=== PATIENT | female | born 1975 | race African-American/Black ===

== ENCOUNTER 2019-03-19 03:48 | Emergency (ER) | payer OTHER ==
[~2019-03-19] VITALS: Ht 165.1 cm; Wt 113.0 kg
[2019-03-19] MEDS ORDERED: MORPHINE SULFATE 10 MG/ML CPJ IM ONE (04:45)
[2019-03-19] MEDS ORDERED: ONDANSETRON 4MG ODT PO ONE (04:45)
[2019-03-19 05:30] VITALS: BP 155/86
== END 2019-03-19 06:11 | disposition home or self-care (01) ==
LOC: ER 03:48
DX: M54.5 Low back pain (principal); M54.30 Sciatica, unspecified side; I10 Essential (primary) hypertension; F17.210 Nicotine dependence, cigarettes, uncomplicated
CPT/HCPCS: 96372; 99283; J2270; Q0162; Z7610

== ENCOUNTER 2022-08-17 20:33 | Emergency (ER) | payer MEDICAID, OTHER ==
[~2022-08-17] VITALS: Ht 165.1 cm; Wt 129.2 kg
[2022-08-17] MEDS ORDERED: ACETAMINOPHEN WITH CODEINE 300/30MG TABLET PO ONE (23:45)
[2022-08-18 00:18] VITALS: BP 174/105
[2022-08-18 00:38] LABS: CHLORIDE 107 mEq/L (98-107)
[2022-08-18 00:40] LABS: EOSINOPHILS % 1.4 % (0.0-5.0); HEMATOCRIT. 43.2 % (36.0-48.0); HEMOGLOBIN. 14.6 g/dL (12.0-16.0); LYMPHOCYTES % 34.4 % (20.0-50.0); MEAN CORPUSCULAR HEMOGLOBIN 29.7 pg (28.0-32.0); MEAN PLATELET VOLUME 9.9 fl (7.4-10.4); NEUTROPHILS % 55.2 % (40.0-76.0); PLATELET 203 x1000/uL (130-400); RED BLOOD CELL COUNT 4.91 mill/uL (4.2-5.4); RED CELL DISTRIBUTION WIDTH 13.4 % (11.6-14.6)
[2022-08-18 01:09] LABS: CLARITY URINE CLEAR (CLEAR); COLOR URINE YELLOW (YELLOW); KETONES URINE NEGATIVE (NEGATIVE); LEUKOCYTE ESTERASE URINE NEGATIVE (NEGATIVE); NITRITE URINE NEGATIVE (NEGATIVE); OCCULT BLOOD URINE 2+ (NEGATIVE); PH URINE 5.5 (4.5-8.0); PROTEIN URINE TRACE (NEGATIVE); SPECIFIC GRAVITY URINE 1.013 (1.005-1.030); UROBILINOGEN URINE 0.2 E.U./dL (0.2-1.0)
[2022-08-18] MEDS ORDERED: TAMS-11 MT (03:06)
[2022-08-18] MEDS ORDERED: T3 PO (03:06)
== END 2022-08-18 04:41 | disposition home or self-care (01) ==
LOC: ER 20:33
DX: N20.0 Calculus of kidney (principal); N13.30 Unspecified hydronephrosis; N28.1 Cyst of kidney, acquired; I10 Essential (primary) hypertension; Z87.442 Personal history of urinary calculi; Z90.710 Acquired absence of both cervix and uterus
CPT/HCPCS: 36415; 74176; 80053; 81003; 85025; 93005; 99285